=== PATIENT | female | born 1940 | race Caucasian/White ===

== ENCOUNTER 2018-04-03 10:55 | Day surgery (SDC) | payer OTHER ==
[~2018-04-03] VITALS: Ht 167.6 cm; Wt 75.3 kg
[~2018-04-03 10:55] MED LIST: ACETAMINOPHEN-1 EAC1 PO; ALEVE220 M2 PO; ASCORBIC ACID500 M3 PO; ASPIRIN EC325 MG PO; BENADRYL25 MG PO; CLARITIN,ALAVAR10 MG PO; DOK PLUS TABLE1 EACH PO; FOLIC ACID1 MG PO; GLUCOSAMINE &1 EAC1 PO; HYDROCODON-ACE1 EAC7 PO; MAGNESIUM250 MG PO; METHOCARBAMOL500 MG PO; MOBIC7.5 MG PO; MULTIPLE VITAM1 EAC1 PO; OMEPRAZOLE40 M1 PO; PRAVACHOL20 MG PO; PRAVASTATIN SOD20 MG PO; PREMARIN0.3 MG PO; SUPER B COMPL400 MCG PO; TURMERIC 450-51 EACH PO; TYLENOL ARTHRI650 MG PO; TYLENOL EXTRA500 MG PO; TYLENOL REGULA325 MG PO; WOMEN'S DAILY1 EAC1 PO; ZANTAC150 MG PO
[2018-04-03 11:30] VITALS: BP 145/70
[2018-04-03 15:20] VITALS: BP 140/65
[2018-04-03 15:55] VITALS: BP 140/67
== END 2018-04-03 16:05 | disposition home or self-care (01) ==
LOC: SDC 10:55
PROC: 0SBD4ZZ Excision of Left Knee Joint, Percutaneous Endoscopic Approach (ICD-10-PCS; principal; 2018-04-03)
DX: S83.242A Other tear of medial meniscus, current injury, left knee, initial encounter (principal); S83.282A Other tear of lateral meniscus, current injury, left knee, initial encounter; M17.12 Unilateral primary osteoarthritis, left knee; Z88.2 Allergy status to sulfonamides; K21.9 Gastro-esophageal reflux disease without esophagitis; E78.00 Pure hypercholesterolemia, unspecified
CPT/HCPCS: J0171; J0690; J1100; J1170; J1885; J2250; J2405; J3010; Q0175